=== PATIENT | female | born 1995 | race Caucasian/White ===

== ENCOUNTER 2022-04-23 06:09 | Emergency (ER) | payer MEDICAID ==
[~2022-04-23] VITALS: Ht 165.1 cm; Wt 73.0 kg
[2022-04-23] MEDS ORDERED: LIDOCAINE HCL/PF 1% 10 MG/ML 5ML VIAL INFIL ONE (08:30)
[2022-04-23 08:44] LABS: BASOPHILS % 0.5 % (0.0-2.0); EOSINOPHILS % 1.3 % (0.0-5.0); HEMATOCRIT. 40.9 % (36.0-48.0); HEMOGLOBIN. 14.1 g/dL (12.0-16.0); LYMPHOCYTES % 44.2 % (20.0-50.0); MEAN CORPUSCULAR HEMOGLOBIN 29.7 pg (28.0-32.0); MEAN CORPUSCULAR VOLUME 85.8 fL (81.0-99.0); MEAN PLATELET VOLUME 8.1 fl (7.4-10.4); PLATELET 282 x1000/uL (130-400); RED BLOOD CELL COUNT 4.77 mill/uL (4.2-5.4); RED CELL DISTRIBUTION WIDTH 12.8 % (11.6-14.6)
[2022-04-23 08:49] LABS: CHLORIDE 110 mEq/L (98-107)
[2022-04-23 08:52] LABS: CLARITY URINE CLEAR (CLEAR); COLOR URINE YELLOW (YELLOW); KETONES URINE NEGATIVE (NEGATIVE); LEUKOCYTE ESTERASE URINE NEGATIVE (NEGATIVE); NITRITE URINE NEGATIVE (NEGATIVE); OCCULT BLOOD URINE NEGATIVE (NEGATIVE); PROTEIN URINE NEGATIVE (NEGATIVE); SPECIFIC GRAVITY URINE 1.004 (1.005-1.030); UROBILINOGEN URINE 0.2 E.U./dL (0.2-1.0)
[2022-04-23 08:57] LABS: ETHANOL BLOOD 90 mg/dL
[2022-04-23 09:09] LABS: *AMPHETAMINES SCREEN URINE NEGATIVE (NEGATIVE); *BARBITURATES SCREEN URINE NEGATIVE (NEGATIVE); *BENZODIAZEPINES SCREEN URINE NEGATIVE (NEGATIVE); *COCAINE SCREEN URINE NEGATIVE (NEGATIVE); CANNABINOID URINE SCREEN NEGATIVE (NEGATIVE); METHADONE URINE SCREEN NEGATIVE (NEGATIVE); OPIATES URINE SCREEN NEGATIVE (NEGATIVE); PHENCYCLIDINE URINE SCREEN NEGATIVE (NEGATIVE)
[2022-04-23 09:11] LABS: HCG SCREEN NEGATIVE
[2022-04-23] MEDS: FLUOXETINE HCL 10 MG CAPSULE PO SCH (12:12)
[2022-04-24] MEDS: FLUOXETINE HCL 10 MG CAPSULE PO SCH (09:00)
[2022-04-25] MEDS: FLUOXETINE HCL 10 MG CAPSULE PO SCH (15:45)
[2022-04-25 19:50] VITALS: BP 130/74
== END 2022-04-25 20:40 ==
LOC: ER 06:09
DX: S51.812A Laceration without foreign body of left forearm, initial encounter (principal); F33.2 Major depressive disorder, recurrent severe without psychotic features; X78.8XXA Intentional self-harm by other sharp object, initial encounter; R45.1 Restlessness and agitation; F10.10 Alcohol abuse, uncomplicated; R03.0 Elevated blood-pressure reading, without diagnosis of hypertension; Y90.4 Blood alcohol level of 80-99 mg/100 ml; Z20.822 Contact with and (suspected) exposure to COVID-19; Z63.0 Problems in relationship with spouse or partner; Y93.89 Activity, other specified; Y92.89 Other specified places as the place of occurrence of the external cause; Z91.51 Personal history of suicidal behavior
CPT/HCPCS: 12002; 36415; 80053; 80305; 80320; 81003; 84703; 85025; 99285; C9803; J3490; U0003; U0005; G0480

== ENCOUNTER 2022-05-02 16:53 | Emergency (ER) | payer MEDICAID ==
[~2022-05-02] VITALS: Ht 162.6 cm; Wt 75.0 kg
[2022-05-02 17:08] VITALS: BP 117/73
== END 2022-05-02 20:47 | disposition left against medical advice (07) ==
LOC: ER 16:53
DX: Z53.21 Procedure and treatment not carried out due to patient leaving prior to being seen by health care provider (principal)